=== PATIENT | female | born 1950 | race Caucasian/White ===

== ENCOUNTER → 2016-07-23 | Outpatient (CLI) | payer MEDICARE, OTHER ==
[2016-07-23 11:13] LABS: Basophils # (A) 0.1 k/uL (0-0.2); Basophils % (A) 2 %; CH 29.4; CHCM 33.1; Eosinophils # (A) 0.2 k/uL (0-0.7); Eosinophils % (A) 3 %; HDW 2.36; HGB 15.7 gm/dL (11.4-16.0); Luc # (Auto) 0.16; Luc % (Auto) 3; Lymphocytes # (A) 1.1 k/uL (1.0-4.8); Lymphocytes % (A) 19 %; MCH 29.1 pg (25.0-35.0); MCHC 32.6 g/dL (31.0-37.0); MCV 89.3 fL (80.0-100.0); Mean Platelet Volume 7.2; Monocytes # (A) 0.4 k/uL (0-1.0); Monocytes % (A) 7 %; Neutrophils # (A) 4.1 k/uL (1.3-7.7); Neutrophils % (A) 67 %; RBC 5.38 m/uL (3.80-5.40); RDW 12.6 % (11.5-15.5); WBC 6.1 k/uL (3.8-10.6); WBC (Perox) 6.05
== END ==
LOC: LABWHC1 10:32
PROVIDERS: ATTEND Physician Assistant Medical
DX: L65.8 Other specified nonscarring hair loss (principal)
CPT/HCPCS: 36415; 84439; 84443; 85025; 86038

== ENCOUNTER 2017-04-04 08:15 | Day surgery (SDC) | payer MEDICARE, OTHER ==
[2017-04-02 14:38] VITALS: BMI 31.0
[~2017-04-04 08:15] MED LIST: LACTATED RINGERS 1,000 ML IV SCH
[2017-04-04 09:02] VITALS: RESP 16; TEMP 98.1
[2017-04-04] MEDS ORDERED: LIDOCAINE 1% 20 ML VIAL (10MG/ML) FOR IV START INTRADERMA ONE (09:03)
[2017-04-04] MEDS ORDERED: PROPOFOL 10 MG/ML 20 ML VIAL IV ONE (09:37)
--- NOTE | 2017-04-04 10:01 | P.PCN ---
Date of Procedure: 04/04/17 Procedure(s) Performed: BRIEF HISTORY: Patient is a 66-year-old, pleasant, white female, scheduled for an upper endoscopy as a part of evaluation of epigastric discomfort for the last 1 year duration. She also complains of the dysphagia to solids. She is been on Zantac 150 milligrams twice daily with some improvement in his symptoms.. PROCEDURE PERFORMED: Esophagogastroduodenoscopy with biopsy. PREOPERATIVE DIAGNOSIS: Epigastric pain and intermittent dysphagia to solids of 1 year duration. IV sedation per anesthesia. PROCEDURE: After informed consent was obtained, the patient was brought into the endoscopy unit. IV sedation was administered by Anesthesia under continuous monitoring. Initially the Olympus GIF-140 video endoscope was inserted into the mouth. Esophagus intubated without any difficulty. It was gradually advanced into the stomach and duodenum and carefully examined. The bulb and the second part of the duodenum appeared normal. The scope at this time was withdrawn to the stomach, adequately insufflated with air, and upon careful examination, mucosa of the antrum, had mild antral gastritis and biopsies were done from this area. The body, cardia and the fundus appeared normal. The scope was then withdrawn into the esophagus. Small hiatal hernia noted. The GE junction was located at 39 cm from the incisors. The esophagus appeared normal. There was once provision erosion consistent with LA grade a reflux esophagitis. Biopsies were done from the proximal esophagus rule out eosinophilic esophagitis and the patient tolerated the procedure well. IMPRESSION: 1. Mild antral gastritis. 2. Small hiatal hernia and a LA grade A reflux esophagitis. RECOMMENDATIONS: The findings of this examination were discussed with the patient as well as a family. She was advised to continue with Zantac 300 mg twice daily and follow antireflux measures..
[2017-04-04 10:28] VITALS: BP 163/80; PULSE 71
== END 2017-04-04 10:42 | disposition home or self-care (01) ==
LOC: ORWHC2ENDO 08:15
PROVIDERS: ATTEND Internal Medicine Gastroenterology
DX: K29.50 Unspecified chronic gastritis without bleeding (principal); K44.9 Diaphragmatic hernia without obstruction or gangrene; K21.0 Gastro-esophageal reflux disease with esophagitis; I34.1 Nonrheumatic mitral (valve) prolapse; I45.10 Unspecified right bundle-branch block; M19.90 Unspecified osteoarthritis, unspecified site; Z79.899 Other long term (current) drug therapy; Z88.1 Allergy status to other antibiotic agents; Z88.0 Allergy status to penicillin; Z88.2 Allergy status to sulfonamides; Z91.048 Other nonmedicinal substance allergy status
CPT/HCPCS: 88305; 88342; 43239; J2704

== ENCOUNTER → 2017-06-13 | Outpatient (CLI) | payer MEDICARE, OTHER ==
--- NOTE | 2017-06-13 14:19 | CT ---
EXAMINATION TYPE: CT sinus wo con DATE OF EXAM: 06/13/2017 COMPARISON: NONE HISTORY: Chronic sinusitis CT DLP: [address] of the paranasal sinuses was performed in the axial and coronal planes. Bone and soft tissue settings are submitted. The paranasal sinuses demonstrate normal aeration and development. The paranasal sinuses are free of mucosal thickening or air fluid level. The osteal meatal units are patent bilaterally. Mild nasal septal deviation from left to right. No bony destructive changes are seen within the field of view. IMPRESSION: Mild nasal septal deviation from left to right. Otherwise unremarkable study.
== END | disposition home or self-care (01) ==
LOC: RADCTMAIN 13:56
PROVIDERS: ATTEND Otolaryngology
DX: J34.2 Deviated nasal septum (principal); J32.9 Chronic sinusitis, unspecified
CPT/HCPCS: 70486

== ENCOUNTER → 2017-08-15 | Outpatient (CLI) | payer MEDICARE, OTHER ==
--- NOTE | 2017-08-16 07:31 | MR ---
EXAMINATION TYPE: MR shoulder LT wo con DATE OF EXAM: 08/15/2017 COMPARISON: NONE HISTORY: Left shoulder pain TECHNIQUE: Multiplanar, multisequence imaging of the left shoulder is performed without contrast. FINDINGS: There is 8 mm degenerative cyst at the greater tuberosity of the humerus. There is some thickening an d increased signal in the supraspinatus tendon near the insertion on the greater tuberosity. There is no retraction. There is spurring at the AC joint and subacromial impingement on the supraspinatus mu scle. There is deflection. The subscapularis tendon is intact. Biceps tendon is intact. There is smal l shoulder joint effusion. There is narrowing of the glenohumeral joint space. There is mild spur for mation. There is spurring at the AC joint. The biceps tendon is intact. IMPRESSION: There is spurring at the AC joint with moderate subacromial impingement. There is full-thickness tear of the supraspinatus tendon without retraction. Degenerative cyst at the greater tuberosity. Osteoar thritic narrowing of the glenohumeral joint space. There is some deformity of the posterior glenoid l abrum consistent with osteoarthritis.
== END | disposition home or self-care (01) ==
LOC: RADMRIMAIN 07:26
PROVIDERS: ATTEND Orthopaedic Surgery
DX: M75.102 Unspecified rotator cuff tear or rupture of left shoulder, not specified as traumatic (principal); M19.012 Primary osteoarthritis, left shoulder; M21.822 Other specified acquired deformities of left upper arm; M25.812 Other specified joint disorders, left shoulder

== ENCOUNTER → 2018-04-14 | Outpatient (CLI) | payer MEDICARE, OTHER ==
--- NOTE | 2018-04-14 11:57 | US ---
EXAMINATION TYPE: US kidneys/renal and bladder DATE OF EXAM: 04/14/2018 COMPARISON: CT 2016. CLINICAL HISTORY: R31.1 Hematuria N39.0 Urinary Tract infection. EXAM MEASUREMENTS: Right Kidney: 11.4 x 5.5 x 5.0 cm Left Kidney: 11.9 x 5.5 x 5.4 cm Post Void Residual Volume: 10.6 mL Right Kidney: parapelvic cyst noted = 1.6 x 1.1 x 1.5cm Left Kidney: Bladder: not fully distended, but wnl Bilateral Jets seen: yes Normal Post Void Residual: yes The urinary bladder is poorly distended and thus suboptimally evaluated. Bilateral ureteral jets are seen. Tiny amount of residual urine is present after voiding. Scanning of right kidney shows adjacen t heterogeneous hyperechoic liver consistent with fatty infiltration. Simple appearing parapelvic cys t mid to lower pole level right kidney are redemonstrated. No hydronephrosis is seen. Anechoic centra l structures left kidney correspond to simple parapelvic cysts on CT without definitive hydronephrosi s. Nonspecific hyperechoic foci are marked by technologist without shadowing I do not suspect calculi . IMPRESSION: Simple appearing parapelvic cysts redemonstrated bilaterally. No suspicious finding is seen to accoun t for patient's symptoms of hematuria. If symptoms persists further investigation with CT urogram wou ld be warranted.
== END | disposition home or self-care (01) ==
LOC: RADUSWWP 10:37
PROVIDERS: ATTEND Urology
DX: N28.1 Cyst of kidney, acquired (principal); N39.0 Urinary tract infection, site not specified; Z88.0 Allergy status to penicillin; Z88.1 Allergy status to other antibiotic agents
CPT/HCPCS: 76770

== ENCOUNTER 2018-07-10 02:30 | Emergency (ER) | payer MEDICARE, OTHER ==
[2018-07-10 02:41] VITALS: TEMP 98.6
[2018-07-10] MEDS ORDERED: KETOROLAC 60 MG/2 ML VIAL IM STA (03:03)
--- NOTE | 2018-07-10 03:08 | ED ---
Back Pain HPI - General Source: patient, family, RN notes reviewed Limitations: physical limitation <Emerson Jolly - Last Filed: 07/10/18 03:57> <Yamilex Horner - Last Filed: 07/10/18 04:23> - General Chief Complaint: Back Pain/Injury Stated Complaint: back/leg pain Time Seen by Provider: 07/10/18 02:51 - History of Present Illness Initial Comments: This a 67-year-old female presents emergency Department chief complaint of left low back pain, left leg pain. Patient states that started on Friday has progressively worsened. Patient did admit that she was visiting her son and did more activity than usual and then in the car ride home. Patient states that the pain is unbearable when she goes from a laying to sitting position. Patient denies any bowel bladder incontinence or retention. Patient does have a history of sciatica and states it feels very similar. She has no abdominal pain denies any dysuria, hematuria, diarrhea or constipation. Patient denies any visual or chills. Patient states pain is worse with twisting bending. She does get relief when she takes ibuprofen though she has not taken anything recently i buprofen (Emerson Jolly) - Related Data Home Medications Medication Instructions Recorded Confirmed Metoprolol Succinate [Toprol XL] 50 mg PO DAILY 08/25/14 04/04/17 Cholecalciferol [Vitamin D3] 2,000 unit PO DAILY 09/01/14 04/04/17 Biotin 5 mg PO DAILY 04/02/17 04/04/17 Cyanocobalamin [Vitamin B-12 1,000 mcg SQ QMONTH 04/02/17 04/04/17 Injection] Ranitidine HCl [Zantac] 300 mg PO BID 04/02/17 04/04/17 Allergies Allergy/AdvReac Type Severity Reaction Status Date / Time adhesive Allergy BLISTERS Verified 07/10/18 02:41 WITH TAPE & EKG TABS. sulfamethoxazole Allergy Rash/Hives Verified 07/10/18 02:41 [From Bactrim] trimethoprim [From Bactrim] Allergy Rash/Hives Verified 07/10/18 02:41 Penicillins AdvReac Nausea & Verified 07/10/18 02:41 Vomiting Review of Systems ROS Other: All systems not noted in ROS Statement are negative. <Dedoe,Emerson M - Last Filed: 07/10/18 03:57> ROS Other: All systems not noted in ROS Statement are negative. <EevnsYamilex P - Last Filed: 07/10/18 04:23> ROS Statement: Those systems with pertinent positive or pertinent negative responses have been documented in the HPI. Past Medical History Past Medical History: Eye Disorder, GERD/Reflux, Hypertension, Mitral Valve Prolapse (MVP), Osteoarthritis (OA) Additional Past Medical History / Comment(s): PT STATES RBBB AND ?MVP., hiatal hernia, epigastric pain, some dysphagia w/pills @times History of Any Multi-Drug Resistant Organisms: None Reported Past Surgical History: Appendectomy, Section, Joint Replacement, Orthopedic Surgery Additional Past Surgical History / Comment(s): X2, RIGHT SHOULDER SURGERY, right hip replaced Past Anesthesia/Blood Transfusion Reactions: Motion Sickness, Postoperative Nausea & Vomiting (PONV) Past Psychological History: No Psychological Hx Reported Smoking Status: Never smoker Past Alcohol Use History: None Reported Past Drug Use History: None Reported - Past Family History Mother Family Medical History: Cancer Additional Family Medical History / Comment(s): BREAST CA <Emerson Jolly M - Last Filed: 07/10/18 03:57> General Exam Limitations: physical limitation General appearance: alert, in no apparent distress Respiratory exam: Present: normal lung sounds bilaterally. Absent: respiratory distress, wheezes, rales, rhonchi, stridor Cardiovascular Exam: Present: regular rate, normal rhythm, normal heart sounds. Absent: systolic murmur, diastolic murmur, rubs, gallop, clicks GI/Abdominal exam: Present: soft, normal bowel sounds. Absent: distended, tenderness, guarding, rebound, rigid Extremities exam: Present: other (Lower extremity strength equal bilaterally, neurovascular intact equal color equal warmth pulses are equal.) Neurological exam: Present: alert Skin exam: Present: warm, dry, intact, normal color. Absent: rash <Emerson Jolly - Last Filed: 07/10/18 03:57> Course Vital Signs 07/10/18 07/10/18 02:35 04:08 Temperature 98.6 F Pulse Rate 77 70 Respiratory 18 16 Rate Blood Pressure 181/91 144/86 O2 Sat by Pulse 96 Oximetry Medical Decision Making <Emerson Jolly - Last Filed: 07/10/18 03:57> <Yamilex Horner - Last Filed: 07/10/18 04:23> - Medical Decision Making 67-year-old female presented from for low back pain, flank pain. Patient's symptoms are consistent with lumbar but It. Patient's neurologically intact, normal affect symptoms CT shows evidence of degenerative changes at L4-L5 urina lysis unremarkable. Patient will follow-up with orthopedics associate as she seen in the past. Return parameters were discussed. (Emerson Jolly) I was available for consultation in the emergency department. The history and physical exam were done by the midlevel provider. I was consulted for this patient's care. I reviewed the case with the midlevel provider and based on their presentation of the patient, I agree with the assessment, medical decision making and plan of care as documented. (Yamilex Horner) - Lab Data Lab Results 07/10/18 Range/Units 03:22 Urine Color Light Yellow Urine Appearance Clear (Clear) Urine pH 5.5 (5.0-8.0) Ur Specific [place] 1.008 (1.001-1.035) Urine Protein Negative (Negative) Urine Glucose (UA) Negative (Negative) Urine Ketones Negative (Negative) Urine Blood Negative (Negative) Urine Nitrite Negative (Negative) Urine Bilirubin Negative (Negative) Urine Urobilinogen <2.0 (<2.0) mg/dL Ur Leukocyte Esterase Trace H (Negative) Urine RBC 1 (0-5) /hpf Urine WBC 2 (0-5) /hpf Ur Squamous Epith Cells 1 (0-4) /hpf Amorphous Sediment Rare H (None) /hpf Urine Bacteria Rare H (None) /hpf Urine Mucus Rare H (None) /hpf Disposition Is patient prescribed a controlled substance at d/c from ED?: No Time of Disposition: 03:58 <Emerson Jolly - Last Filed: 07/10/18 03:57> <Yamilex Horner - Last Filed: 07/10/18 04:23> Clinical Impression: Lumbar radiculopathy Disposition: HOME SELF-CARE Condition: Stable Instructions (If sedation given, give patient instructions): Acute Low Back Pain (ED), Lumbar Radiculopathy (ED) Additional Instructions: Please return to the Emergency Department if symptoms worsen or any other concerns. Referrals: Pa Rodriguez MD [Primary Care Provider] - 1-2 days Babak Bryant DO [Doctor of Osteopathic Medicine] - 1-2 days
[2018-07-10 03:46] LABS: Amorphous Sediment,Urine Rare /hpf; Appearance,Urine Clear (Clear); Bacteria,Urine Rare /hpf; Bilirubin,Urine Negative (Negative); Blood,Urine Negative (Negative); Color,Urine Light Yellow; Glucose,Urine (UA) Negative (Negative); Ketones,Urine Negative (Negative); Leukocyte Esterase,Urine Trace (Negative); Mucus,Urine Rare /hpf; Nitrite,Urine Negative (Negative); PH, Urine 5.5 (5.0-8.0); Protein,Urine Negative (Negative); RBC,Urine 1 /hpf (0-5); Specific Gravity,Urine 1.008 (1.001-1.035); Squamous Epithelial Cell,Urine 1 /hpf (0-4); Urobilinogen,Urine <2.0 mg/dL (<2.0)
--- NOTE | 2018-07-10 03:47 | CT ---
EXAM: CT Lumbar Spine Without Intravenous Contrast CLINICAL HISTORY: ITS.REASON CT Reason: Pain TECHNIQUE: Axial computed tomography images of the lumbar spine without intravenous contrast. CTDI is 41 mGy and DLP is 1525 mGy-cm. This CT exam was performed using one or more of the following dose reduction techniques: automated exposure control, adjustment of the mA and/or kV according to patient size, and/or use of iterative reconstruction technique. COMPARISON: No relevant prior studies available. FINDINGS: Vertebrae: No acute fracture or subluxation. Discs/spinal canal/neural foramina: Multilevel degenerative changes and disc protrusions. Central canal stenosis is most prominent at L4-5. Soft tissues: Unremarkable. Kidneys and ureters: Renal parapelvic cysts. Stomach and bowel: Diverticulosis. Bladder: Minimal bladder wall thickening. Other findings: Right hip prosthesis. IMPRESSION: 1. No acute fracture or subluxation. 2. Degenerative changes with central canal narrowing most prominent at L4-5.
[2018-07-10] MEDS ORDERED: ACET/COD 300 MG/30 MG STARTER PACK 6 TAB BTL PO STA (03:56)
[2018-07-10 04:10] VITALS: BP 144/86; PULSE 70; RESP 16
== END 2018-07-10 04:08 | disposition home or self-care (01) ==
LOC: EC 02:30
DX: M47.26 Other spondylosis with radiculopathy, lumbar region (principal); I10 Essential (primary) hypertension; K21.9 Gastro-esophageal reflux disease without esophagitis; M19.90 Unspecified osteoarthritis, unspecified site; Z88.0 Allergy status to penicillin; Z88.2 Allergy status to sulfonamides; Z91.048 Other nonmedicinal substance allergy status; Z79.899 Other long term (current) drug therapy; Z96.641 Presence of right artificial hip joint
CPT/HCPCS: 81001; 72131; 99284; 96372; J1885

== ENCOUNTER → 2019-02-12 | Outpatient (CLI) | payer MEDICARE, OTHER ==
[2019-02-12 16:41] LABS: HCT 42.4 % (34.0-46.0); HGB 14.3 gm/dL (11.4-16.0); MCH 29.9 pg (25.0-35.0); MCHC 33.7 g/dL (31.0-37.0); MCV 88.7 fL (80.0-100.0); Mean Platelet Volume 6.8; Platelet Count 285 k/uL (150-450); RBC 4.78 m/uL (3.80-5.40); RDW 12.4 % (11.5-15.5)
[2019-02-12 19:08] LABS: Erythrocyte Sedimentation Rate 9 mm/hr (0-20)
[2019-02-13 00:28] LABS: African American GFR (CKD) 102.5 (60.0-200.0); Albumin 4.3 g/dL (3.80-4.90); Albumin/Globulin Ratio 2.05 (1.60-3.17); Anion Gap 7.1 mmol/L (4.00-12.00); BUN/Creat Ratio 18.57 Ratio (12.00-20.00); Calcium 9.4 mg/dL (8.7-10.3); Carbon Dioxide 25.9 mmol/L (21.6-31.8); Globulin 2.1 g/dL (1.6-3.3); Non-African American GFR(CKD) 88.4 (60.0-200.0); Potassium 4.5 mmol/L (3.5-5.5); Total Bilirubin 0.8 mg/dL (0.3-1.2); Total Protein 6.4 g/dL (6.2-8.2)
[2019-02-13 00:53] LABS: Hemoglobin A1C 5.7 % (4.0-6.0)
== END | disposition home or self-care (01) ==
LOC: LABWHC1 15:26
PROVIDERS: ATTEND Internal Medicine
DX: I10 Essential (primary) hypertension (principal); H53.8 Other visual disturbances; M79.643 Pain in unspecified hand
CPT/HCPCS: 36415; 80053; 83036; 85027; 85652; 86431

== ENCOUNTER → 2019-02-15 | Outpatient (CLI) | payer MEDICARE, OTHER ==
--- NOTE | 2019-02-15 15:48 | CT ---
EXAMINATION TYPE: CT brain wo con DATE OF EXAM: 02/15/2019 COMPARISON: None HISTORY: changes in vision CT DLP: [address] of the brain was performed. The ventricles, basal cisterns and sulci overlying the cerebral convexities demonstrate mild enlargem ent. There is no evidence for intracranial hemorrhage or sulcal effacement. There is decreased attenuation about the periventricular white matter and deep white matter of both c erebral hemispheres, compatible with chronic small vessel ischemia. Differential diagnosis does inclu de demyelination. No mass effects are seen.No midline shift. Osseous calvarium is intact. If symptoms persist consider MRI. IMPRESSION: 1. Age related atrophic and chronic small vessel ischemic change without acute intracranial process s een at this time.
== END | disposition home or self-care (01) ==
LOC: RADCTMAIN 15:18
PROVIDERS: ATTEND Internal Medicine
DX: G31.1 Senile degeneration of brain, not elsewhere classified (principal); I67.82 Cerebral ischemia; G45.9 Transient cerebral ischemic attack, unspecified; Z88.0 Allergy status to penicillin; Z88.1 Allergy status to other antibiotic agents
CPT/HCPCS: 70450

== ENCOUNTER → 2020-07-20 | Outpatient (CLI) | payer MEDICARE, OTHER ==
[2020-07-20 19:20] LABS: HCT 44.7 % (37.2-46.3); HGB 14.3 g/dL (12.0-15.0); MCH 28.9 pg (27.0-32.0); MCV 90.5 fL (80.0-97.0); Mean Platelet Volume 11.2 fL (9.5-12.2); Platelet Count 274 X 10*3/uL (140-440); RBC 4.94 X 10*6/uL (4.10-5.20); RDW 12.7 % (11.5-14.5); WBC 7.57 X 10*3/uL (4.50-10.00)
[2020-07-21 08:12] LABS: ALT 22 U/L (8-44); AST 27 U/L (13-35); African American GFR (CKD) 101.7 (60.0-200.0); Alkaline Phosphatase 89 U/L (41-126); BUN/Creat Ratio 17.14 Ratio (12.00-20.00); Calcium 9.2 mg/dL (8.7-10.3); Chloride 108 mmol/L (96-109); Globulin 2.1 g/dL (1.6-3.3); Glucose 137 mg/dL (70-110); Iron 53 ug/dL (50-170); Non-African American GFR(CKD) 87.8 (60.0-200.0); Potassium 4.7 mmol/L (3.5-5.5); Sodium 143 mmol/L (135-145); Total Bilirubin 0.7 mg/dL (0.3-1.2); Total Protein 6.5 g/dL (6.2-8.2)
== END | disposition home or self-care (01) ==
LOC: LABWHC1 14:47
PROVIDERS: ATTEND Internal Medicine
DX: L65.9 Nonscarring hair loss, unspecified (principal); R53.83 Other fatigue; R21 Rash and other nonspecific skin eruption
CPT/HCPCS: 36415; 80053; 82306; 82627; 83540; 84439; 84443; 84481; 85027; 86618

== ENCOUNTER → 2020-08-18 | Outpatient (CLI) | payer MEDICARE, OTHER ==
--- NOTE | 2020-08-23 14:18 | MM ---
Reason for exam: screening (asymptomatic). Last mammogram was performed 4 years and 10 months ago. History: Patient is postmenopausal. Family history of breast cancer in mother at age 70. Benign excisional biopsy of the left breast. Took estrogen for 1 year beginning at age 47. Physical Findings: A clinical breast exam by your physician is recommended on an annual basis and results should be correlated with mammographic findings. MG 3D Screening Mammo W/Cad Bilateral CC and MLO view(s) were taken. Prior study comparison: October 06, 2015, bilateral MG 3d screening mammo w/cad. May 03, 2014, bilateral MG screening mammo w CAD. The breast tissue is heterogeneously dense. This may lower the sensitivity of mammography. Bilateral axillary tail nodules most likely lymph node. ASSESSMENT: Benign, BI-RAD 2 RECOMMENDATION: Routine screening mammogram of both breasts in 1 year.
== END | disposition home or self-care (01) ==
LOC: RADMAMWWP 12:15
PROVIDERS: ATTEND Obstetrics & Gynecology
DX: Z12.31 Encounter for screening mammogram for malignant neoplasm of breast (principal); Z78.0 Asymptomatic menopausal state; Z80.3 Family history of malignant neoplasm of breast
CPT/HCPCS: 77063; 77067

== ENCOUNTER 2020-11-03 16:01 | Emergency (ER) | payer MEDICARE, OTHER ==
--- NOTE | 2020-11-03 16:37 | ED ---
URI HPI - General Chief Complaint: Upper Respiratory Infection Stated Complaint: Covid test Time Seen by Provider: 11/03/20 16:01 Source: patient, RN notes reviewed Mode of arrival: ambulatory Limitations: no limitations - History of Present Illness Initial Comments: 70-year-old female who is here with her who was just diagnosed with COVID-19 who wishes to be tested she's been having some congestion as well as a left frontal discomfort and sore throat. but no fevers chills nausea vomiting sweats or other symptoms. The patient started having symptoms 3 days ago. - Related Data Home Medications Medication Instructions Recorded Confirmed Metoprolol Succinate [Toprol XL] 75 mg PO DAILY 08/25/14 11/03/20 Cholecalciferol [Vitamin D3 (25 2,000 unit PO DAILY 09/01/14 11/03/20 Mcg = 1000 Iu)] Zinc 50 mg PO DAILY 11/03/20 11/03/20 Allergies Allergy/AdvReac Type Severity Reaction Status Date / Time adhesive Allergy BLISTERS Verified 11/03/20 16:23 WITH TAPE & EKG TABS. sulfamethoxazole Allergy Rash/Hives Verified 11/03/20 16:23 [From Bactrim] trimethoprim [From Bactrim] Allergy Rash/Hives Verified 11/03/20 16:23 Penicillins AdvReac Nausea & Verified 11/03/20 16:23 Vomiting Review of Systems ROS Statement: Those systems with pertinent positive or pertinent negative responses have been documented in the HPI. ROS Other: All systems not noted in ROS Statement are negative. Past Medical History Past Medical History: Eye Disorder, GERD/Reflux, Hypertension, Mitral Valve Prolapse (MVP), Osteoarthritis (OA) Additional Past Medical History / Comment(s): PT STATES RBBB AND ?MVP., hiatal hernia, epigastric pain, some dysphagia w/pills @times History of Any Multi-Drug Resistant Organisms: None Reported Past Surgical History: Appendectomy, Section, Joint Replacement, Orthopedic Surgery Additional Past Surgical History / Comment(s): X2, RIGHT SHOULDER SURGERY, right hip replaced Past Anesthesia/Blood Transfusion Reactions: Motion Sickness, Postoperative Nausea & Vomiting (PONV) Past Psychological History: No Psychological Hx Reported Smoking Status: Never smoker Past Alcohol Use History: None Reported Past Drug Use History: None Reported - Past Family History Mother Family Medical History: Cancer Additional Family Medical History / Comment(s): BREAST CA General Exam - General Exam Comments Initial Comments: This is a well-developed well-nourished awake alert oriented 3 female Limitations: no limitations General appearance: alert, in no apparent distress Head exam: Present: atraumatic, normocephalic, normal inspection Eye exam: Present: normal appearance, PERRL, EOMI. Absent: scleral icterus, conjunctival injection, periorbital swelling ENT exam: Present: mucous membranes moist, other (Mild posterior pharyngeal hyperemia tonsils are absent) Neck exam: Present: normal inspection, tenderness (Mild tender anterior cervical lymphadenopathy), other (No stridor JVD or bruits). Absent: meningismus, lymphadenopathy Respiratory exam: Present: normal lung sounds bilaterally. Absent: respiratory distress, wheezes, rales, rhonchi, stridor Cardiovascular Exam: Present: regular rate, normal rhythm, normal heart sounds. Absent: systolic murmur, diastolic murmur, rubs, gallop, clicks GI/Abdominal exam: Present: soft, normal bowel sounds. Absent: distended, tenderness, guarding, rebound, rigid Extremities exam: Present: normal inspection, full ROM, normal capillary refill. Absent: tenderness, pedal edema, joint swelling, calf tenderness Back exam: Present: normal inspection Neurological exam: Present: alert, oriented X3, CN II-XII intact Psychiatric exam: Present: normal affect, normal mood Skin exam: Present: warm, dry, intact, normal color. Absent: rash Course Vital Signs 11/03/20 16:21 Temperature 98.0 F Pulse Rate 75 Respiratory 22 Rate Blood Pressure 156/78 O2 Sat by Pulse 99 Oximetry Medical Decision Making - Medical Decision Making I did a long discussion with the patient. Fine she is a candidate for antibody therapy she is agreed to accept. She will be discharged after the administration we did discuss return parameters - Lab Data Lab Results 11/03/20 Range/Units 16:42 Coronavirus (PCR) Detected A (Not Detectd) Disposition Clinical Impression: COVID-19, Sinusitis, Pharyngitis, Viral syndrome Disposition: HOME SELF-CARE Condition: Good Instructions (If sedation given, give patient instructions): Upper Respiratory Infection (ED), Coronavirus Disease 2019 (COVID-19), Viral Syndrome (ED) Is patient prescribed a controlled substance at d/c from ED?: No Referrals: Pa Rodriguez MD [Primary Care Provider] - 1-2 days
[2020-11-03] MEDS ORDERED: SODIUM CHLORIDE 0.9% 50 ML IVPB ONE (18:15)
[2020-11-03] MEDS ORDERED: CASIRIVIMAB (REGN10933) (EUA) 600 MG, IMDEVIMAB (REGN10987) (EUA) 600 MG in SODIUM CHLO... IVPB ONE (18:45)
[2020-11-03 21:12] VITALS: BP 162/71; PULSE 79; RESP 26; TEMP 98.2
== END 2020-11-03 21:13 | disposition home or self-care (01) ==
LOC: EC 16:01
DX: U07.1 COVID-19 (principal); J32.9 Chronic sinusitis, unspecified; J02.9 Acute pharyngitis, unspecified; I10 Essential (primary) hypertension; M19.90 Unspecified osteoarthritis, unspecified site; Z79.899 Other long term (current) drug therapy; Z91.09 Other allergy status, other than to drugs and biological substances; Z88.0 Allergy status to penicillin; Z88.1 Allergy status to other antibiotic agents; Z88.2 Allergy status to sulfonamides
CPT/HCPCS: 87635; 96365; 99283

== ENCOUNTER → 2020-11-23 | Outpatient (CLI) | payer MEDICARE, OTHER | END | disposition home or self-care (01) | LOC: LABWHC1 10:32 | PROVIDERS: ATTEND Internal Medicine Interventional Cardiology | DX: E03.9 Hypothyroidism, unspecified (principal) | CPT/HCPCS: 36415; 84443 ==

== ENCOUNTER → 2020-12-21 | Outpatient (CLI) | payer MEDICARE, OTHER ==
--- NOTE | 2020-12-21 12:40 | XR ---
EXAMINATION TYPE: XR chest 2V DATE OF EXAM: 12/21/2020 COMPARISON: Chest x-ray 07/14/2015 HISTORY: Recurrent cough TECHNIQUE: Frontal and lateral views of the chest are obtained. FINDINGS: There is no focal air space opacity, pleural effusion, or pneumothorax seen. The cardiac silhouette size is within normal limits. Aorta is dense. There is some bronchial wall thickening note d. Right hemidiaphragm mildly elevated as on prior. The osseous structures are intact, there is thor acic spondylosis. IMPRESSION: Correlate for bronchitis, reactive airways disease.
== END | disposition home or self-care (01) ==
LOC: RADXRMAIN 11:26
PROVIDERS: ATTEND Internal Medicine
DX: R05 Cough (principal)
CPT/HCPCS: 71046

== ENCOUNTER → 2021-07-19 | Outpatient (CLI) | payer MEDICARE, OTHER ==
[2021-07-19 14:45] LABS: Chol/HDL Ratio 2.58 Ratio; VLDL Calculation 13.86 mg/dL (5.00-40.00)
== END | disposition home or self-care (01) ==
LOC: LABWHC1 08:19
PROVIDERS: ATTEND Nurse Practitioner
DX: Z00.00 Encounter for general adult medical examination without abnormal findings (principal); E78.5 Hyperlipidemia, unspecified
CPT/HCPCS: 36415; 80061; 84443

== ENCOUNTER 2024-02-28 23:35 | Emergency (ER) | payer MEDICARE, OTHER ==
[2024-02-28 23:38] VITALS: TEMP 98.4
[2024-02-29 01:36] LABS: Basophils # (A) 0.1 k/uL (0-0.2); Basophils % (A) 1 %; Eosinophils # (A) 0.3 k/uL (0-0.7); Eosinophils % (A) 3 %; HCT 45.5 % (34.0-46.0); HGB 15.2 gm/dL (11.4-16.0); Lymphocytes # (A) 1.7 k/uL (1.0-4.8); Lymphocytes % (A) 19 %; MCH 29.8 pg (25.0-35.0); MCHC 33.3 g/dL (31.0-37.0); MCV 89.3 fL (80.0-100.0); Mean Platelet Volume 7.4; Monocytes # (A) 0.6 k/uL (0-1.0); Monocytes % (A) 7 %; Neutrophils # (A) 5.9 k/uL (1.3-7.7); Neutrophils % (A) 68 %; Platelet Count 269 k/uL (150-450); RDW 12.3 % (11.5-15.5); WBC 8.6 k/uL (3.8-10.6)
[2024-02-29 01:46] LABS: ALT 21 U/L (4-34); AST 22 U/L (14-36); African American GFR (CKD) >90 (>60 ml/min/1.73 sqM); Albumin 4.3 g/dL (3.5-5.0); Alkaline Phosphatase 99 U/L (38-126); Anion Gap 6 mmol/L; Blood Urea Nitrogen 16 mg/dL (7-17); Calcium 9.6 mg/dL (8.4-10.2); Carbon Dioxide 22 mmol/L (22-30); Chloride 112 mmol/L (98-107); Glucose 110 mg/dL (74-99); Non-African American GFR(CKD) >90 (>60 ml/min/1.73 sqM); Potassium 4.1 mmol/L (3.5-5.1); Sodium 140 mmol/L (137-145); Total Bilirubin 0.8 mg/dL (0.2-1.3); Total Protein 7.1 g/dL (6.3-8.2)
[2024-02-29 01:54] LABS: NT-Pro-B-Type Natriuretic Pept 143 pg/mL
[2024-02-29] MEDS: cloNIDine HCL 0.2 MG TAB PO STA (02:03)
[2024-02-29 02:07] VITALS: RESP 18
--- NOTE | 2024-02-29 03:04 | XR ---
EXAM: XR Chest, 2 Views CLINICAL HISTORY: ITS.REASON XR Reason: dyspnea TECHNIQUE: Frontal and lateral views of the chest. COMPARISON: No relevant prior studies available. FINDINGS: Lungs: No consolidation or mass. Pleural space: No effusion. Heart: cardiomegaly. Bones/joints: No acute findings. IMPRESSION: No acute cardiopulmonary process.
[2024-02-29] MEDS: hydrALAZINE HCL 20 MG/ML 1 ML VIAL IVP STA (03:08)
--- NOTE | 2024-02-29 03:30 | ED ---
General Adult HPI - General Chief complaint: Recheck/Abnormal Lab/Rx Stated complaint: Hypertension Time Seen by Provider: 02/29/24 00:50 Source: patient Mode of arrival: ambulatory Limitations: no limitations - History of Present Illness Initial comments: This patient is a 73-year-old woman who is presenting to have evaluation of hypertension. The patient states that when she woke up yesterday she felt like she was short of breath and dizzy. She checked her blood pressure and it was elevated. She did take her medications but states that when she rechecked her blood pressure throughout that day it remained elevated. She tried to sleep tonight but then woke up with palpitations and dizziness. Patient denies chest pain. She denies neurologic symptoms. She does have mild generalized headache. Onset/Timin -: days(s) Location: head Radiation: non-radiation Severity scale (1-10): 4 Quality: dull Consistency: constant Improves with: none Worsens with: none Associated Symptoms: headaches, shortness of breath Treatments Prior to Arrival: none - Related Data Home Medications Medication Instructions Recorded Confirmed Metoprolol Succinate [Toprol XL] 75 mg PO DAILY 08/25/14 11/03/20 Cholecalciferol [Vitamin D3 (25 2,000 unit PO DAILY 09/01/14 11/03/20 Mcg = 1000 Iu)] Zinc 50 mg PO DAILY 11/03/20 11/03/20 Previous Rx's Medication Instructions Recorded lisinopriL [Zestril] 5 mg PO DAILY #20 tab 02/29/24 Allergies Allergy/AdvReac Type Severity Reaction Status Date / Time adhesive Allergy BLISTERS Verified 02/28/24 23:37 WITH TAPE & EKG TABS. sulfamethoxazole Allergy Rash/Hives Verified 02/28/24 23:37 [From Bactrim] trimethoprim [From Bactrim] Allergy Rash/Hives Verified 02/28/24 23:37 Penicillins AdvReac Nausea & Verified 02/28/24 23:37 Vomiting Review of Systems ROS Statement: Those systems with pertinent positive or pertinent negative responses have been documented in the HPI. ROS Other: All systems not noted in ROS Statement are negative. Constitutional: Denies: fever, chills, weakness Respiratory: Reports: as per HPI, dyspnea. Denies: cough, wheezes Cardiovascular: Reports: palpitations. Denies: chest pain, edema, syncope Gastrointestinal: Denies: abdominal pain, nausea, vomiting, diarrhea Genitourinary: Denies: dysuria, frequency, hematuria Musculoskeletal: Denies: back pain Skin: Denies: rash Neurological: Reports: headache. Denies: weakness, numbness, confusion Past Medical History Past Medical History: Eye Disorder, GERD/Reflux, Hypertension, Mitral Valve Prolapse (MVP), Osteoarthritis (OA) Additional Past Medical History / Comment(s): PT STATES RBBB AND ?MVP., hiatal hernia, epigastric pain, some dysphagia w/pills @times History of Any Multi-Drug Resistant Organisms: None Reported Past Surgical History: Appendectomy, Section, Joint Replacement, Orthopedic Surgery Additional Past Surgical History / Comment(s): X2, RIGHT SHOULDER SURGERY, right hip replaced Past Anesthesia/Blood Transfusion Reactions: Motion Sickness, Postoperative Nausea & Vomiting (PONV) Past Psychological History: No Psychological Hx Reported Smoking Status: Never smoker Past Alcohol Use History: None Reported Past Drug Use History: None Reported - Past Family History Mother Family Medical History: Cancer Additional Family Medical History / Comment(s): BREAST CA General Exam Limitations: no limitations General appearance: alert, in no apparent distress Head exam: Present: atraumatic, normocephalic Eye exam: Present: normal appearance. Absent: scleral icterus, conjunctival injection Neck exam: Present: normal inspection Respiratory exam: Present: normal lung sounds bilaterally. Absent: respiratory distress, wheezes, rales, rhonchi, stridor, accessory muscle use Cardiovascular Exam: Present: regular rate, normal rhythm, normal heart sounds. Absent: systolic murmur, diastolic murmur, rubs, gallop GI/Abdominal exam: Present: soft. Absent: distended, tenderness, guarding, rebound, rigid, mass Extremities exam: Present: normal inspection, normal capillary refill. Absent: pedal edema, calf tenderness Back exam: Present: normal inspection. Absent: CVA tenderness (R), CVA tenderness (L) Neurological exam: Present: alert Skin exam: Present: warm, dry, intact, normal color. Absent: rash Course Vital Signs 02/28/24 02/29/24 02/29/24 23:36 02:07 03:10 Temperature 98.4 F Pulse Rate 104 H 86 79 Respiratory 20 18 18 Rate Blood Pressure 185/96 202/114 151/73 O2 Sat by Pulse 98 Oximetry 12/08/24 12/08/24 03:15 03:34 Temperature Pulse Rate 82 81 Respiratory 18 Rate Blood Pressure 120/56 117/47 O2 Sat by Pulse 96 Oximetry EKG Findings - EKG Results: EKG: interpreted by ERMD, sinus rhythm (With 1 PVC, rate 99 bpm), normal ST/T - Blocks, [place], Hypertrophy, ST Abn: AV and intraventricular conduction: right bundle branch block (fixed/intermittent, complete/incomplete) QRS axis and voltage: left axis deviation (-30 to -90) (Borderline left axis deviation) Medical Decision Making - Medical Decision Making Patient had chest x-ray that I interpreted as negative for acute infiltrate, congestive heart failure, pneumothorax. Was pt. sent in by a medical professional or institution ([facility], [employer]EL[employer], urgent care, hospital, or alf...) When possible be specific @ -[No] Did you speak to anyone other than the patient for history (EMS, parent, family, police, friend...)? What history was obtained from this source @ -[No] Did you review nursing and triage notes (agree or disagree)? Why? @ -[I reviewed and agree with nursing and triage notes] Were old charts reviewed (outside hosp., previous admission, EMS record, old EKG, old radiological studies, urgent care reports/EKG's, alf records)? Report findings @ -[No old charts were reviewed] Differential Diagnosis (chest pain, altered mental status, abdominal pain women, abdominal pain men, vaginal bleeding, weakness, fever, dyspnea, syncope, headache, dizziness, GI bleed, back pain, seizure, CVA, palpatations, mental health, musculoskeletal)? @ -Amphetamine Toxicity Anxiety Disorders Apnea, Sleep Cocaine-Related Cardiomyopathy Heart Failure Hyperthyroidism, Thyroid Storm, and Graves Disease Hypertrophic Cardiomyopathy Myocardial Infarction Phencyclidine Toxicity Primary Aldosteronism Stroke, Hemorrhagic Stroke, Ischemic EKG interpreted by me (3pts min.). @ -[Interpreted as above] X-rays interpreted by me (1pt min.). @ -[I interpreted as above CT interpreted by me (1pt min.). @ -[None done] U/S interpreted by me (1pt. min.). @ -[None done] What testing was considered but not performed or refused? (CT, X-rays, U/S, labs)? Why? @ -[None] What meds were considered but not given or refused? Why? @ -[None] Did you discuss the management of the patient with other professionals (professionals i.e. , PA, TERADATA DEVELOPER, lab, RT, psych nurse, social services designee, community board member, teacher, student liaison officer, piano case maker)? Give summary @ -[No] Was smoking cessation discussed for >3mins.? @ -[No] Was critical care preformed (if so, how long)? @ -[No] Were there social determinants of health that impacted care today? How? (Homelessness, low income, unemployed, alcoholism, drug addiction, transportation, low edu. Level, literacy, decrease access to med. care, penitentiary, rehab)? @ -[No] Was there de-escalation of care discussed even if they declined (Discuss DNR or withdrawal of care, Hospice)? DNR status @ -[No] What co-morbidities impacted this encounter? (DM, HTN, Smoking, COPD, CAD, Cancer, CVA, ARF, Chemo, Hep., AIDS, mental health diagnosis, sleep apnea, morbid obesity)? @ -[Hypertension Was patient admitted / discharged? Hospital course, mention meds given and r oute, prescriptions, significant lab abnormalities, going to OR and other pertinent info. @ -[Patient is a 73-year-old woman here with hypertension. The patient does have some mild headache. The physical examination and workup are benign. She did have improvement with treatment. Headache has resolved. Patient will follow-up with her physician to have blood pressure reevaluated and see if she does need adjustment of her current regimen. Did discuss return parameters as well Undiagnosed new problem with uncertain prognosis? @ -[No] Drug Therapy requiring intensive monitoring for toxicity (Heparin, Nitro, Insulin, Cardizem)? @ -[No] Were any procedures done? @ -[No] Diagnosis/symptom? @ -[Acute on chronic hypertension headache Acute, or Chronic, or Acute on Chronic @ -[ Uncomplicated (without systemic symptoms) or Complicated (systemic symptoms)? @ -[Uncomplicated Side effects of treatment? @ -[No] Exacerbation, Progression, or Severe Exacerbation? @ -[No] Poses a threat to life or bodily function? How? (Chest pain, [place], [place], pneumonia, PE, COPD, DKA, ARF, appy, cholecystitis, CVA, Diverticulitis, Homicidal, Suicidal, threat to staff... and all critical care pts) @ -[No] All treatments are based on ideal body weight as in ED triage - Lab Data Result diagrams: 02/29/24 01:10 02/29/24 01:10 Lab Results 02/29/24 02/29/24 02/29/24 Range/Units 01:10 01:10 01:10 WBC 8.6 (3.8-10.6) k/uL RBC 5.10 (3.80-5.40) m/uL Hgb 15.2 (11.4-16.0) gm/dL Hct 45.5 (34.0-46.0) % MCV 89.3 (80.0-100.0) fL MCH 29.8 (25.0-35.0) pg MCHC 33.3 (31.0-37.0) g/dL RDW 12.3 (11.5-15.5) % Plt Count 269 (150-450) k/uL MPV 7.4 Neutrophils % 68 % Lymphocytes % 19 % Monocytes % 7 % Eosinophils % 3 % Basophils % 1 % Neutrophils # 5.9 (1.3-7.7) k/uL Lymphocytes # 1.7 (1.0-4.8) k/uL Monocytes # 0.6 (0-1.0) k/uL Eosinophils # 0.3 (0-0.7) k/uL Basophils # 0.1 (0-0.2) k/uL Sodium 140 (137-145) mmol/L Potassium 4.1 (3.5-5.1) mmol/L Chloride 112 H (98-107) mmol/L Carbon Dioxide 22 (22-30) mmol/L Anion Gap 6 mmol/L BUN 16 (7-17) mg/dL Creatinine 0.59 (0.52-1.04) mg/dL Est GFR (CKD-EPI)AfAm >90 (>60 ml/min/1.73 sqM) Est GFR (CKD-EPI)NonAf >90 (>60 ml/min/1.73 sqM) Glucose 110 H (74-99) mg/dL Calcium 9.6 (8.4-10.2) mg/dL Magnesium 2.0 (1.6-2.3) mg/dL Total Bilirubin 0.8 (0.2-1.3) mg/dL AST 22 (14-36) U/L ALT 21 (4-34) U/L Alkaline Phosphatase 99 (38-126) U/L Troponin I <0.012 (0.000-0.034) ng/mL NT-Pro-B Natriuret Pep 143 pg/mL Total Protein 7.1 (6.3-8.2) g/dL Albumin 4.3 (3.5-5.0) g/dL Disposition Clinical Impression: Hypertension Disposition: HOME SELF-CARE Condition: Good Instructions (If sedation given, give patient instructions): Hypertension (ED) Prescriptions: lisinopriL [Zestril] 5 mg PO DAILY #20 tab Is patient prescribed a controlled substance at d/c from ED?: No Referrals: Delvis Trevizo MD [Primary Care Provider] - 1-2 days
[2024-02-29 03:36] VITALS: BP 117/47; PULSE 81
== END 2024-02-29 03:59 | disposition home or self-care (01) ==
LOC: EC 23:35
DX: I10 Essential (primary) hypertension (principal); Z91.09 Other allergy status, other than to drugs and biological substances; Z88.0 Allergy status to penicillin; Z88.1 Allergy status to other antibiotic agents; Z88.2 Allergy status to sulfonamides
CPT/HCPCS: 36415; 93005; 83880; 80053; 83735; 84484; 85025; 71046; 99284; 96374; J0360

== ENCOUNTER → 2024-04-06 | Outpatient (CLI) | payer MEDICARE, OTHER ==
[2024-04-06 16:33] LABS: Chol/HDL Ratio 2.97 Ratio; LDL Cholesterol,Calculated 86.3 mg/dL (0.0-131.0)
== END | disposition home or self-care (01) ==
LOC: LABWHC1 09:03
PROVIDERS: ATTEND Nurse Practitioner
DX: I10 Essential (primary) hypertension (principal)
CPT/HCPCS: 36415; 80061

== ENCOUNTER → 2024-04-21 | Outpatient (CLI) | payer MEDICARE, OTHER ==
[2024-04-21 11:26] VITALS: BP 157/71; PULSE 69; RESP 18; TEMP 97.7
--- NOTE | 2024-04-21 12:18 | P.SLEEP ---
History of Present Illness DATE: 04/21/2024 CONSULTATION/NEW PATIENT EVALUATION HISTORY OF PRESENT ILLNESS/SLEEP-WAKE EVALUATION: 73-year-old lady had been e valuated in the sleep center for possible obstructive sleep apnea hypopnea syndrome. SLEEP SCHEDULE: Usually sleep schedule from 10 PM to 7 AM 7 days a week. FALLING ASLEEP: Sometimes patient has difficulties with falling asleep, has TV set in bedroom. DURING SLEEP: Patient usually sleeps on the side position with snoring and awakenings from sleep almost every hour with 1 episode of nocturia. No history of hypnogogical hallucinations, sleep paralysis, or cataplexy. DURING THE DAY/WAKE STATE: In the morning patient wake up tired. [place] sleepiness scale is 3. Occasionally patient takes 1 nap at afternoon time. PAST MEDICAL HISTORY: Hypertension, grinding teeth. PAST SURGICAL HISTORY: Right hip replacement, right shoulder surgery. MEDICATIONS: Please see below. SOCIAL HISTORY: Please see below. FAMILY HISTORY: Please see below. REVIEW OF SYSTEMS: Snoring, multiple awakenings from sleep. No fevers. No double vision. No recent chest pain. No shortness of breath. No abdominal pain. No bleeding episodes. No blood in urine. No seizure episodes. PHYSICAL EXAMINATION: GENERAL: A pleasant patient without any distress. VITAL SIGNS: Please see below, weight 218 pounds, BMI 36.0. HEENT: PERRLA, EOMI. Evaluation of oropharynx showed tongue protrudes midline, low position of soft palate Mallampati 4, significant retrognathia 3 mm. NECK: Supple. No JVD. Thyroid is not palpable. 17.5 inches in circumference. LUNGS: Clear to percussion and to auscultation. Good air exchange. No wheezing or rhonchi. HEART: S1, S2 regular. No murmurs, gallops or rubs. Patient has manager monitoring. ABDOMEN: Soft and nontender. Bowel sounds are present. No organomegaly appreciated. EXTREMITIES: No clubbing or cyanosis. INVENTORY CONTROL/SHIPPING RECEIVING: Awake, alert, and oriented x3. Cranial nerves 2 to 7 intact. There is no fasciculation or atrophy noted. No focal deficits observed. ASSESSMENT: 1. Snoring, multiple awakenings from sleep, extremely low position of soft palate Mallampati 4, significant retrognathia, wide neck 17.5 inches in circumference. Obstructive sleep apnea hypopnea syndrome. 2. Obesity, BMI 36.0. 3. Hypertension. 4. Status post right hip replacement. 5 status post right shoulder surgery. 6 . Grinding teeth. PLAN: 1. Polysomnography for evaluation of patient's breathing during sleep. 2. Following plan after reading sleep study. 3. Preferable position during sleep on the side. 4. No driving if patient feels any sleepiness. Patient is aware of civil and criminal liability for unsafe driving. 5. Sleep hygiene with regular sleep time for at least 7.5-8 hours. 6. Watching and losing weight. Thank you very much for referring this patient for consultation. Sincerely, Андрей Patterson MD, PhD, FAASM. Diplomat of [place] [employer], Sleep Medicine Board by [place] [employer] [place] [employer] Fiber Technologist [facility] [place] cc: Delvis Trevizo MD Past Medical History Past Medical History: Eye Disorder, GERD/Reflux, Hypertension, Mitral Valve Prolapse (MVP), Osteoarthritis (OA) Additional Past Medical History / Comment(s): PT STATES RBBB AND ?MVP., hiatal hernia, epigastric pain, some dysphagia w/pills @times, arthritis, snoring History of Any Multi-Drug Resistant Organisms: None Reported Past Surgical History: Appendectomy, Section, Joint Replacement, Orthopedic Surgery Additional Past Surgical History / Comment(s): X2, RIGHT SHOULDER SURGERY, right hip replaced, left thumb, 04/21/24 pt states heart monitor put on her 2 days ago (still wearing) due to heart skips beats Past Anesthesia/Blood Transfusion Reactions: Motion Sickness, Postoperative Nausea & Vomiting (PONV) Past Psychological History: No Psychological Hx Reported Smoking Status: Never smoker Past Alcohol Use History: None Reported Past Drug Use History: None Reported - Past Family History Mother Family Medical History: Cancer, Diabetes Mellitus, Hypertension Additional Family Medical History / Comment(s): BREAST CA, arthritis Medications and Allergies Home Medications Medication Instructions Recorded Confirmed Type Metoprolol Succinate [Toprol XL] 100 mg PO DAILY 08/25/14 04/21/24 History Cholecalciferol [Vitamin D3 (25 5,000 unit PO DAILY 09/01/14 04/21/24 History Mcg = 1000 Iu)] Zinc 50 mg PO DAILY 11/03/20 11/03/20 History lisinopriL [Zestril] 20 mg PO DAILY 04/21/24 04/21/24 History Allergies Allergy/AdvReac Type Severity Reaction Status Date / Time adhesive Allergy BLISTERS Verified 02/28/24 23:37 WITH TAPE & EKG TABS. sulfamethoxazole Allergy Rash/Hives Verified 02/28/24 23:37 [From Bactrim] trimethoprim [From Bactrim] Allergy Rash/Hives Verified 02/28/24 23:37 Penicillins AdvReac Nausea & Verified 02/28/24 23:37 Vomiting Physical Exam Vitals: Vital Signs Temp Pulse Resp BP Pulse Ox 04/21/24 11:24 97.7 F 69 18 157/71 96 Intake and Output 04/20/24 04/21/24 04/21/24 22:59 06:59 14:59 Other: Weight 98.883 kg Sleep Note - Sleep Data ESS Total: 3 - Sleep Note Sleep Note: Temperature: 97.7 F Pulse Rate: 69 Respiratory Rate: 18 Blood Pressure: 157/71 SpO2: 96 Height: 5 ft 5.2 in Weight: 98.883 kg BMI: Neck Circumference: 17.5
== END ==
LOC: 3 N SLEEP 10:50
PROVIDERS: ATTEND Internal Medicine
DX: G47.33 Obstructive sleep apnea (adult) (pediatric) (principal); I10 Essential (primary) hypertension; G47.63 Sleep related bruxism; Z96.651 Presence of right artificial knee joint; Z47.1 Aftercare following joint replacement surgery; Z68.36 Body mass index [BMI] 36.0-36.9, adult; Z91.09 Other allergy status, other than to drugs and biological substances; Z88.1 Allergy status to other antibiotic agents; Z88.2 Allergy status to sulfonamides; Z88.0 Allergy status to penicillin
CPT/HCPCS: 99211

== ENCOUNTER 2024-05-16 19:31 | Outpatient (CLI) | payer MEDICARE, OTHER ==
--- NOTE | 2024-05-19 18:19 | P.PCN ---
Description of Procedure: POLYSOMNOGRAPHY REPORT PROCEDURE(S)/DATE(S): Polysomnography 05/16/2024 CLINICAL: Patient has been seen in the sleep center for evaluation of obstructive sleep apnea-hypopnea syndrome. Please see my consultation. Sleep study has been done for evaluation of patient breathing during the sleep. PROCEDURE: The standard montage for clinical polysomnography included the electroencephalogram, the electrooculogram, the mentalis surface electromyography and Lead II cardiography. The respiratory battery consisted of measurements of nasal/buccal air flow, pressure transducer measurements from nose, thoracic and/or abdominal effort and intercostal surface electromyography. Video monitoring has been done to check for any parasomnia events. Nocturnal oxyhemoglobin saturations were obtained by finger oximetry. Step-hensley titration with positive airway pressure was utilized to control the respiratory events, if necessary. RESULTS: During the diagnostic sleep study sleep efficiency was decreased to 74.9%. Latency to sleep onset was significantly prolonged to 59.0 min. Sleep architecture showed stage NI was normal 7.8%, Delta sleep was 0%, REM sleep was normal 23.5%. Respiratory channel showed 0 obstructive apneas, 0 mixed apneas, 0 central apneas, 57 hypopneas with lowest oxygen level 79%. Total apnea hypopnea index was 10.2. Damián Mancera MD level was below 89% for 27 minutes. Apnea hypopnea index in rem sleep 32.9. Heart rate was in the range between 66 and 77, average 71. EMG showed 46.1 periodic limb movements per hour with 0.2 micro-arousals per hour. IMPRESSIONS: 1. Obstructive sleep apnea hypopnea syndrome, severe in rem sleep. 2. Significant periodic limb movements have been documented. Please see other impressions from consultation PLAN: 1. The patient will have PAP titration for correction of respiratory abnormalities during the sleep. 2. Losing weight program. 3. Sleep hygiene with regular time in bed for at least 7-1/2 hours. 4. No driving if feeling sleepiness. 5. Please check iron profile including ferritin level. Low level of iron may increase the risk for periodic limb movements. Thank you very much for allowing me to participate in the management of your patient. Sincerely, Андрей Patterson MD, PhD, FAASM. Diplomat of [place] [employer], Sleep Medicine Board by [place] [employer]ical [employer] Sales Engineer [facility] [place] cc: Delvis Trevizo MD
== END 2024-05-17 05:24 | disposition home or self-care (01) ==
LOC: 3 N SLEEP 19:31
PROVIDERS: ATTEND Internal Medicine
DX: G47.33 Obstructive sleep apnea (adult) (pediatric) (principal); G47.61 Periodic limb movement disorder; Z91.048 Other nonmedicinal substance allergy status; Z88.0 Allergy status to penicillin; Z88.2 Allergy status to sulfonamides
CPT/HCPCS: 95810